=== PATIENT | female | born 1990 | race Caucasian/White ===

== ENCOUNTER 2017-02-23 18:01 | Emergency (ER) | payer MEDICARE, MEDICAID ==
--- NOTE | 2017-02-23 19:33 | UC ---
General HPI - HPI Summary HPI Summary: Pt reports sudden on set of bilateral lower leg swelling that began today. Pt reports that she began a new job over the last week and is standing on her feet for long periods of time for training and noted today that her bilateral lower legs were slightly edematous> Pt denies pain, erythema, injury, or cardiac disease. - History of Current Complaint Chief Complaint: UCLowerExtremity Stated Complaint: SWELLING FEET AND ANKLES Time Seen by Provider: 02/23/17 19:07 Hx Obtained From: Patient Hx Last Menstrual Period: 01/22/17, DUE ANY TIME OR PEROID TO START Onset/Duration: Sudden Onset, Lasting Hours - 10+, Still Present Timing: Constant Onset Severity: Mild Current Severity: Moderate Associated Signs & Symptoms: Positive: Edema - bilateral lower extremity - Allergy/Home Medications Allergies/Adverse Reactions: Allergies Allergy/AdvReac Type Severity Reaction Status Date / Time No Known Allergies Allergy Verified 02/23/17 19:12 PMH/Surg Hx/FS Hx/Imm Hx Previously Healthy: Yes - CP - Surgical History Surgical History: Yes Surgery Procedure, Year, and Place: TONSILLECTOMY - Family History Known Family History: Positive: Cardiac Disease - Social History Occupation: Employed Full-time Lives: With Family Alcohol Use: Rare Substance Use Type: None Smoking Status (MU): Current Some Day Smoker Type: Cigarettes Amount Used/How Often: 5-10 CIGS PER WEEK Have You Smoked in the Last Year: Yes Review of Systems Constitutional: Negative Skin: Negative Eyes: Negative ENT: Negative Respiratory: Negative Cardiovascular: Negative Gastrointestinal: Negative Genitourinary: Negative Motor: Negative Neurovascular: Negative Musculoskeletal: Edema - bialteral lower extremity, non pitting Neurological: Negative Psychological: Negative All Other Systems Reviewed And Are Negative: Yes Physical Exam Triage Information Reviewed: Yes Appearance: Well-Appearing Vital Signs: Initial Vital Signs Temp 97.8 F 02/23/17 19:13 Pulse 134 02/23/17 19:13 Resp 18 02/23/17 19:13 BP 137/94 02/23/17 19:13 Pulse Ox 100 02/23/17 19:13 Vital Signs Reviewed: Yes Eye Exam: Normal Neck exam: Normal Respiratory Exam: Normal Cardiovascular Exam: Normal Musculoskeletal Exam: Other Musculoskeletal: Positive: Edema @ - bilateral lower extremity non pitting Neurological Exam: Other - hx CP Psychological Exam: Normal Skin Exam: Normal Course/Dx - Differential Dx - Multi-Symptom Differential Diagnoses: Other - edema Provider Diagnoses: edema bialteral lower extremity Discharge - Discharge Plan Condition: Stable Disposition: HOME Patient Education Materials: Leg Edema (ED) Referrals: [facility] [Outside] - If Needed No Primary Care Phys,NOPCP [Primary Care Provider] - If Needed Additional Instructions: Please follow up with your PCP or return to clinic as needed. If you do not havea pCP we have provided a referral to the [facility] provider list.
[2017-02-23 19:48] VITALS: BP 137/94
== END 2017-02-23 19:56 | disposition home or self-care (01) ==
LOC: UCCORT 18:01
DX: R60.0 Localized edema (principal); F17.210 Nicotine dependence, cigarettes, uncomplicated
CPT/HCPCS: 99211; G0463

== ENCOUNTER 2017-03-22 13:43 | Emergency (ER) | payer MEDICARE, MEDICAID ==
[2017-03-22 15:47] VITALS: BP 134/90
--- NOTE | 2017-03-22 16:01 | UC ---
Ear Complaint HPI - HPI Summary HPI Summary: left ear and throat pain for the last 3 days - History of Current Complaint Chief Complaint: UCGeneralIllness Stated Complaint: THROAT,EAR COMPLAINT Time Seen by Provider: 03/22/17 15:37 Hx Obtained From: Patient Hx Last Menstrual Period: 03/06/17 ?: No Onset/Duration: Sudden Onset, Lasting Days Severity Initially: Moderate Severity Currently: Moderate Associated Signs/Symptoms: Positive: URI Symptoms - Allergies/Home Medications Allergies/Adverse Reactions: Allergies Allergy/AdvReac Type Severity Reaction Status Date / Time No Known Allergies Allergy Verified 03/22/17 15:44 PMH/Surg Hx/FS Hx/Imm Hx Previously Healthy: Yes - Surgical History Surgical History: Yes Surgery Procedure, Year, and Place: TONSILLECTOMY - Family History Known Family History: Positive: None, Cardiac Disease - Social History Alcohol Use: Rare Substance Use Type: None Smoking Status (MU): Current Some Day Smoker Type: Cigarettes Amount Used/How Often: 5-10 CIGS PER WEEK Have You Smoked in the Last Year: Yes Review of Systems Constitutional: Fever Skin: Negative Eyes: Negative ENT: Sore Throat, Ear Ache, Sinus Congestion Respiratory: Negative Cardiovascular: Negative Gastrointestinal: Negative Genitourinary: Negative Motor: Negative Neurovascular: Negative Musculoskeletal: Negative Neurological: Negative Psychological: Negative Is Patient Immunocompromised?: No All Other Systems Reviewed And Are Negative: Yes Physical Exam Triage Information Reviewed: Yes Appearance: Well-Nourished, Ill-Appearing, Pain Distress Vital Signs: Initial Vital Signs Temp 99.0 F 03/22/17 15:44 Pulse 97 03/22/17 15:44 Resp 16 03/22/17 15:44 BP 134/90 03/22/17 15:44 Pulse Ox 98 03/22/17 15:44 Vital Signs Reviewed: Yes Eye Exam: Normal ENT: Positive: Hearing grossly normal, Pharynx normal, TMs normal Dental Exam: Normal Neck exam: Normal Neck: Positive: Supple, Nontender, No Lymphadenopathy Respiratory Exam: Normal Respiratory: Positive: Chest non-tender, Lungs clear, Normal breath sounds Cardiovascular Exam: Normal Cardiovascular: Positive: RRR, No Murmur, Pulses Normal Abdominal Exam: Normal Abdomen Description: Positive: Nontender, No Organomegaly, Soft Bowel Sounds: Positive: Present Musculoskeletal Exam: Normal Musculoskeletal: Positive: Strength Intact, ROM Intact, No Edema Neurological Exam: Normal Neurological: Positive: Alert, Muscle Tone Normal Psychological Exam: Normal Skin Exam: Normal Ear Complaint Course/Dx - Course Course Of Treatment: hx obtained, exam performed ,meds reviewed, treated for left otitis media - Differential Dx/Diagnosis Differential Diagnosis/HQI/PQRI: Cerumen Impaction, Otitis Externa, Otitis Media , URI Provider Diagnoses: left otitis media. pharyngitis Discharge - Discharge Plan Condition: Stable Disposition: HOME Prescriptions: Cephalexin CAP* [Keflex CAP*] 500 mg PO BID #14 cap Patient Education Materials: Otitis Media in Children (ED) Additional Instructions: 1. take the medication as prescribed. 2. Increase your fluid intake 3. Decongestant such as claritin D daily for the next 2-3 weeks will help with the draining of the flulid behind the ear.
== END 2017-03-22 16:06 | disposition home or self-care (01) ==
LOC: UCCORT 13:43
DX: H66.92 Otitis media, unspecified, left ear (principal); J02.9 Acute pharyngitis, unspecified; Z72.0 Tobacco use
CPT/HCPCS: 99212; G0463

== ENCOUNTER 2018-07-06 11:19 | Emergency (ER) | payer MEDICARE, MEDICAID ==
--- NOTE | 2018-07-06 11:37 | UC ---
UC General HPI - HPI Summary HPI Summary: PT C/O BURNING WITH URINATION PLUS FREQUENCY AND URGENCY X 2 DAYS. JUST FINISHED THE LAST DAY OF A 7 DAY OTC TX FOR YEAST VAGINITIS(ITCHY-WHITE DISCHARGE). THAT IS NOW BETTER. DENIES RISK/CONCERN FOR STD. NO FEVER, ABDOMINAL PAIN OR FLANK PAIN. - History of Current Complaint Stated Complaint: URINARY Time Seen by Provider: 07/06/18 11:27 Hx Obtained From: Patient Hx Last Menstrual Period: 03/06/17 Onset/Duration: Gradual Onset Timing: Constant Associated Signs & Symptoms: Positive: Dysuria. Negative: Abdominal Pain, Back Pain, Diarrhea, Fever, Nausea, Vomiting - Allergy/Home Medications Allergies/Adverse Reactions: Allergies Allergy/AdvReac Type Severity Reaction Status Date / Time No Known Allergies Allergy Verified 07/06/18 11:42 PMH/Surg Hx/FS Hx/Imm Hx Previously Healthy: Yes - Surgical History Surgical History: Yes Surgery Procedure, Year, and Place: TONSILLECTOMY - Family History Known Family History: Positive: None, Cardiac Disease - Social History Alcohol Use: Rare Substance Use Type: None Smoking Status (MU): Current Some Day Smoker Type: Cigarettes Amount Used/How Often: 5-10 CIGS PER WEEK Have You Smoked in the Last Year: Yes - Immunization History Vaccination Up to Date: Yes Review of Systems All Other Systems Reviewed And Are Negative: Yes Constitutional: Positive: Negative Skin: Positive: Negative Eyes: Positive: Negative ENT: Positive: Negative Respiratory: Positive: Negative Cardiovascular: Positive: Negative Gastrointestinal: Positive: Negative Genitourinary: Positive: Dysuria, Frequency, Urgency Motor: Positive: Negative Neurovascular: Positive: Negative Musculoskeletal: Positive: Negative Neurological: Positive: Negative Psychological: Positive: Negative Physical Exam Triage Information Reviewed: Yes Appearance: Well-Appearing Vital Signs Reviewed: Yes Eyes: Positive: Conjunctiva Clear ENT: Positive: Normal ENT inspection Neck: Positive: Supple, Nontender, No Lymphadenopathy Respiratory: Positive: Lungs clear, Normal breath sounds Cardiovascular: Positive: RRR, No Murmur Abdomen Description: Positive: Nontender, No Organomegaly, Soft. Negative: CVA Tenderness (R), CVA Tenderness (L), Distended, Guarding Bowel Sounds: Positive: Present Musculoskeletal: Positive: ROM Intact Neurological: Positive: Alert Psychological: Positive: Age Appropriate Behavior Skin Exam: Normal Diagnostics - Laboratory Diagnostic Studies Completed/Ordered: U/A= PROTEIN, BLOOD, LEUKOCYTES, NITRITES. CULTURE PENDING Course/Dx - Differential Dx - Multi-Symptom Differential Diagnoses: Urinary Tract Infection, Other - VAGINITIS - Diagnoses Provider Diagnosis: UTI (urinary tract infection) Discharge - Sign-Out/Discharge Documenting (check all that apply): Patient Departure All imaging exams completed and their final reports reviewed: No Studies - Discharge Plan Condition: Stable Disposition: HOME Prescriptions: Fluconazole 150 MG TAB* [Diflucan 150 MG TAB*] 150 mg PO UC ONCE #1 tablet Nitrofurantoin Monohyd/M-Cryst [Macrobid 100 mg Capsule] 100 mg PO BID 4 Days # 8 cap Patient Education Materials: Urinary Tract Infection in Women (DC) Referrals: Yadira Thompson PA [Physician Maxillofacial Surgeon] - 7 Days Additional Instructions: TAKE THE DIFLUCAN FOR RECURRENT VAGINAL YEAST INFECTION - Billing Disposition and Condition Condition: STABLE Disposition: Home
[2018-07-06 11:42] VITALS: BP 138/96
[2018-07-06] MEDS ORDERED: Nitrofurantoin Macrocrystals* 50 MG CAP PO ONE (11:52)
== END 2018-07-06 12:15 | disposition home or self-care (01) ==
LOC: UCCORT 11:19
DX: J32.9 Chronic sinusitis, unspecified (principal); B96.4 Proteus (mirabilis) (morganii) as the cause of diseases classified elsewhere; F17.210 Nicotine dependence, cigarettes, uncomplicated
CPT/HCPCS: 81003; 87077; 87086; 87186; 99212; A9270-GY; G0463

== ENCOUNTER 2019-05-30 15:30 | Emergency (ER) | payer BC, MEDICARE ==
[2019-05-30 17:17] VITALS: BP 119/86
--- NOTE | 2019-05-30 17:25 | UC ---
FLU HPI - HPI Summary HPI Summary: 29-year-old female presents with onset of fever, chills, malaise, fatigue, body aches, headache, and sore throat last night. Denies ear pain, nasal congestion , runny nose, cough, chest pain, difficulty breathing, abdominal pain, nausea, or vomiting. - History of Current Complaint Chief Complaint: UCGeneralIllness Stated Complaint: BODY ACHES,CHILLS, SORE THROAT Time Seen by Provider: 05/30/19 16:51 Hx Obtained From: Patient Hx Last Menstrual Period: 05/20/19 Pain Intensity: 6 - Allergy/Home Medications Allergies/Adverse Reactions: Allergies Allergy/AdvReac Type Severity Reaction Status Date / Time amoxicillin Allergy Vomiting Verified 05/30/19 17:17 Home Medications: Home Medications Naproxen Sodium [Aleve] 1 tab PO ONCE 05/30/19 [History Confirmed 05/30/19] PMH/Surg Hx/FS Hx/Imm Hx Previously Healthy: Yes - Denies significant PMH - Surgical History Surgical History: Yes Surgery Procedure, Year, and Place: TONSILLECTOMY. Ear tubes - Family History Known Family History: Positive: Cardiac Disease - Social History Occupation: Employed Full-time Lives: Alone Alcohol Use: Occasionally Substance Use Type: None Smoking Status (MU): Light Every Day Tobacco Smoker Type: Cigarettes Amount Used/How Often: 3 cigs/day Have You Smoked in the Last Year: Yes - Immunization History Vaccination Up to Date: Yes Review of Systems All Other Systems Reviewed And Are Negative: Yes Constitutional: Positive: Fever, Chills, Fatigue Skin: Negative: Rash Eyes: Negative: Drainage, Eye Redness ENT: Positive: Sore Throat. Negative: Ear Ache, Nasal Discharge, Sinus Congestion, Sinus Pain/Tenderness Respiratory: Negative: Shortness Of Breath, Cough Cardiovascular: Negative: Palpitations, Chest Pain Gastrointestinal: Negative: Abdominal Pain, Vomiting, Nausea Genitourinary: Positive: Negative Musculoskeletal: Positive: Myalgia Neurological: Positive: Headache Is Patient Immunocompromised?: No Physical Exam - Summary Physical Exam Summary: GENERAL APPEARANCE: Well developed, well nourished, alert and cooperative, and appears to be in no acute distress. EYES: Conjunctiva clear. No drainage. EARS: External auditory canals and tympanic membranes clear, hearing grossly intact. NOSE: No nasal discharge. THROAT: Pharyngeal erythema. Surgically absent tonsils. Uvula midline. NECK: Neck supple, non-tender without lymphadenopathy. CARDIAC: Normal S1 and S2. No S3, S4 or murmurs. Rhythm is regular. There is no peripheral edema, cyanosis or pallor. Extremities are warm and well perfused. Capillary refill is less than 2 seconds. Peripheral pulses intact. LUNGS: Clear to auscultation without rales, rhonchi, wheezing or diminished breath sounds. ABDOMEN: Positive bowel sounds. Soft, nondistended, nontender. No guarding or rebound. No masses or hepatosplenomegally. MUSKULOSKELETAL: ROM intact to all extremities. No joint erythema or tenderness. Normal muscular development. Normal gait. SKIN: Skin normal color, texture and turgor with no lesions or eruptions. Triage Information Reviewed: Yes Vital Signs: Initial Vital Signs Temp 101.6 F 05/30/19 17:13 Pulse 108 05/30/19 17:13 Resp 16 05/30/19 17:13 BP 119/86 05/30/19 17:13 Pulse Ox 99 05/30/19 17:13 Vital Signs Reviewed: Yes Flu Course/Dx - Course Course Of Treatment: 29-year-old female presents with onset of fever, chills, malaise, fatigue, body aches, headache, and sore throat last night. Denies ear pain, nasal congestion , runny nose, cough, chest pain, difficulty breathing, abdominal pain, nausea, or vomiting. Patient had an elevated temperature of 101.6 F. mildly tachycardic otherwise vital signs stable. Patient was given ibuprofen 600 mg for the fever. Patient had pharyngeal erythema with surgically absent tonsils, no cervical lymphadenopathy, and otherwise unremarkable exam. Rapid strep test was negative. Reviewed results with the patient and I'm recommending symptomatic treatment for a viral pharyngitis. She is to return here or follow up with her primary care provider in 5-7 days if symptoms are not improving. Anticipatory guidance and warning symptoms were reviewed with the patient. Verbalizes understanding and agrees with plan of care. - Differential Dx/Diagnosis Differential Diagnosis/HQI/PQRI: Influenza, Upper Respiratory Infection, Other - pharyngitis Provider Diagnosis: Acute viral pharyngitis Discharge ED - Sign-Out/Discharge Documenting (check all that apply): Patient Departure All imaging exams completed and their final reports reviewed: No Studies - Discharge Plan Condition: Stable Disposition: HOME Patient Education Materials: Pharyngitis (ED) Forms: *Work Release Referrals: Yumi Baez MD [Primary Care Provider] - 5 Days Additional Instructions: Your rapid strep test in the clinic today was negative. Your symptoms are likely from a viral infection. Viral infections do not respond to antibiotics and are limited to the treatment of symptoms. Viral infections typically run their course in 7-10 days. Drink plenty of fluids to avoid dehydration especially if you are running any fever. Use salt water gargles several times a day. Take over the counter acetaminophen (Tylenol) or ibuprofen (Advil, Motrin) according to directions as needed for pain or fever. You may also use Chloraseptic spray or Cepacol lonzenges according to directions which contain a numbing medication and can provide some temporary relief from your sore throat. Return here or follow up with your primary care provider in 5-7 days if symptoms persist. Seek immediate medical attention in the emergency room if you have fever greater than 100.5 F despite taking acetaminophen or ibuprofen, are unable to swallow or develop drooling, are unable to open your mouth fully, are unable to eat or drink, have pain that is not relieved with over the counter pain medication, or have any difficulty breathing. - Billing Disposition and Condition Condition: STABLE Disposition: Home - Attestation Statements Provider Attestation: This patient was not seen by me. I was available for consult. Chart reviewed. JUDITH
[2019-05-30] MEDS ORDERED: Ibuprofen TAB* 600 MG PO ONE (17:32)
== END 2019-05-30 17:41 | disposition home or self-care (01) ==
LOC: UCCORT 15:30
DX: J02.9 Acute pharyngitis, unspecified (principal); R53.83 Other fatigue; R53.82 Chronic fatigue, unspecified; R51 Headache; F17.210 Nicotine dependence, cigarettes, uncomplicated; Z88.0 Allergy status to penicillin
CPT/HCPCS: 87651; 99212; A9270-GY; G0463

== ENCOUNTER 2019-06-05 16:34 | Emergency (ER) | payer BC, MEDICARE ==
[2019-06-05 17:27] VITALS: BP 127/89
--- NOTE | 2019-06-05 17:32 | UC ---
Pediatric Resp HPI - History Of Current Complaint Chief Complaint: UCGeneralIllness Stated Complaint: RIGHT EAR PLUGGED Time Seen by Provider: 06/05/19 17:21 - Allergies/Home Medications Allergies/Adverse Reactions: Allergies Allergy/AdvReac Type Severity Reaction Status Date / Time amoxicillin Allergy Vomiting Verified 06/05/19 17:22 Home Medications: Home Medications Dextromethorphan Hb/Doxylamine [Night Time Cough Liquid] 1 dose PO ONCE [History Confirmed 06/05/19] Guaifenesin/Dextromethorphan [Robitussin Cough-Chest Dm Liq] 1 dose PO ONCE [History Confirmed 06/05/19] Ibuprofen [Advil] 400 - 600 mg PO BID 06/05/19 [History Confirmed 06/05/19] Past Medical History Respiratory History: No: Hx Asthma Chronic Illness History: No: Diabetes Physical Exam Vital Signs: Initial Vital Signs Temp 97.9 F 06/05/19 17:23 Pulse 93 06/05/19 17:23 Resp 16 06/05/19 17:23 BP 127/89 06/05/19 17:23 Pulse Ox 98 06/05/19 17:23 Discharge ED - Discharge Plan Referrals: Yumi Baez MD [Primary Care Provider] -
--- NOTE | 2019-06-05 17:39 | UC ---
Ear Complaint HPI - HPI Summary HPI Summary: Pt presents with c/o bilateral ear congestion and decreased ability to hear. - History of Current Complaint Chief Complaint: UCGeneralIllness Stated Complaint: RIGHT EAR PLUGGED Time Seen by Provider: 06/05/19 17:21 Hx Obtained From: Patient Hx Last Menstrual Period: 05/19/19 ?: No Onset/Duration: Gradual Onset, Lasting Days, Still Present Severity Initially: Mild Severity Currently: Mild Pain Intensity: 0 Associated Signs/Symptoms: Positive: Hearing Loss - Allergies/Home Medications Allergies/Adverse Reactions: Allergies Allergy/AdvReac Type Severity Reaction Status Date / Time amoxicillin Allergy Vomiting Verified 06/05/19 17:22 Home Medications: Home Medications Dextromethorphan Hb/Doxylamine [Night Time Cough Liquid] 1 dose PO ONCE [History Confirmed 06/05/19] Guaifenesin/Dextromethorphan [Robitussin Cough-Chest Dm Liq] 1 dose PO ONCE [History Confirmed 06/05/19] Ibuprofen [Advil] 400 - 600 mg PO BID 06/05/19 [History Confirmed 06/05/19] PMH/Surg Hx/FS Hx/Imm Hx Previously Healthy: Yes - Surgical History Surgical History: Yes Surgery Procedure, Year, and Place: TONSILLECTOMY. Ear tubes - Family History Known Family History: Positive: Cardiac Disease - Social History Occupation: Employed Full-time Lives: With Family Alcohol Use: Occasionally Substance Use Type: None Smoking Status (MU): Light Every Day Tobacco Smoker Type: Cigarettes Amount Used/How Often: 3 cigs/day Have You Smoked in the Last Year: Yes - Immunization History Vaccination Up to Date: Yes Review of Systems All Other Systems Reviewed And Are Negative: Yes Constitutional: Positive: Negative Skin: Positive: Negative Eyes: Positive: Negative ENT: Positive: Other - hearing loss, c/o "congestion" in ear Respiratory: Positive: Negative Cardiovascular: Positive: Negative Gastrointestinal: Positive: Negative Genitourinary: Positive: Negative Motor: Positive: Negative Neurovascular: Positive: Negative Musculoskeletal: Positive: Negative Neurological: Positive: Negative Psychological: Positive: Negative Is Patient Immunocompromised?: No Physical Exam Triage Information Reviewed: Yes Appearance: Well-Appearing Vital Signs: Initial Vital Signs Temp 97.9 F 06/05/19 17:23 Pulse 93 06/05/19 17:23 Resp 16 06/05/19 17:23 BP 127/89 06/05/19 17:23 Pulse Ox 98 06/05/19 17:23 Vital Signs Reviewed: Yes Eye Exam: Normal ENT: Positive: TM bulging - left TM, TM red - right, Other - cerumen right TM Dental Exam: Normal Neck exam: Normal Respiratory Exam: Normal Respiratory: Positive: No respiratory distress Musculoskeletal Exam: Normal Neurological Exam: Normal Psychological Exam: Normal Skin Exam: Normal Ear Complaint Course/Dx - Differential Dx/Diagnosis Differential Diagnosis/HQI/PQRI: Cerumen Impaction, Other - serous otitis Provider Diagnosis: Impacted cerumen, right ear, Otitis media, right, Acute serous otitis media, left ear Discharge ED - Sign-Out/Discharge Documenting (check all that apply): Patient Departure All imaging exams completed and their final reports reviewed: No Studies - Discharge Plan Condition: Stable Disposition: HOME Prescriptions: Azithromycin TAB* [Zithromax TAB (Z-BYRON) 250 mg #6 tabs] 2 tab PO .TODAY, THEN 1 DAILY #1 byron Patient Education Materials: Pseudoephedrine (By mouth), Cerumen Impaction (ED) , Ear Infection (ED), Serous Otitis Media (ED) Referrals: Yumi Baez MD [Primary Care Provider] - If Needed - Billing Disposition and Condition Condition: STABLE Disposition: Home - Attestation Statements Provider Attestation: I was available for consult. This patient was seen by the [facility]. The patient was not presented to , seen by or examined by nm -Shauna Fontanez MD
== END 2019-06-05 17:52 | disposition home or self-care (01) ==
LOC: UCCORT 16:34
DX: H61.21 Impacted cerumen, right ear (principal); H66.91 Otitis media, unspecified, right ear; H65.92 Unspecified nonsuppurative otitis media, left ear; F17.210 Nicotine dependence, cigarettes, uncomplicated; Z88.0 Allergy status to penicillin
CPT/HCPCS: 99213; G0463